=== PATIENT | female | born 1965 | race Caucasian/White ===

== ENCOUNTER → 2017-10-23 15:12 | Outpatient (CLI) | payer SELFPAY ==
--- NOTE | 2017-10-23 15:12 | DT_ITS ---
This patient was seen during an EMR downtime October 20, 2017 - October 27, 2017. This patient may have a combination of paper and electronic documentation or all paper documentation. All documentation is viewable within the e-chart portion of [facility] for each patient visit.
[2017-10-28 00:31] LABS: Hematocrit 43.8 % (37-47); Hemoglobin 14.2 g/dl (12.0-15.0); Mean Corp Hgb Conc 32.4 g/gl (32-36); Mean Corpuscular Hgb 29.6 pg (27.0-32.0); Mean Corpuscular Volume 91.3 fL (81-99); POSITIVE COUNT NO; POSITIVE DIFFERENTIAL NO; POSITIVE MORPHOLOGY NO; Platelet Count 204 K/mm3 (150-450); RBC Distribution Width CV 13.6 % (11.6-14.6); RBC Distribution Width SD 44.8 fl (35.1-43.9); White Blood Count 8.1 K/mm3 (4.4-11.0)
[2017-10-28 00:32] LABS: Absolute Lymphocyte Count 3.33 X10^3/ul (0.83-4.51); Absolute Neutrophil Count 3.8 X10^3/uL (2.0-7.7); Basophil# 0.04 X10^3/uL; Basophil% 0.5 % (0-1); Eosinophil# 0.16 X10^3/uL; Lymphocyte # 3.33 X10^3/ul (4.0); Lymphocyte % 41.2 % (19-41); Monocyte# 0.72 X10^3/uL; Monocyte% 8.9 % (0-10); Neutrophil # 3.82 X10^3/uL (2.7-7.7); Neutrophil % 47.3 % (47-70)
[2017-10-28 03:09] LABS: AST(SGOT) 54 U/L (15-37); Alanine Aminotransfer ALT/SGPT 92 U/L (13-56); Albumin, Serum 4.3 g/dL (3.2-5.0); Alkaline Phosphatase 129 U/L (45-117); Amylase 39 U/L (25-115); Bilirubin, Direct 0.12 mg/dL (0.00-0.30); Globulin 3.8 g/dL (2.2-4.2); Protein, Total 8.1 g/dL (6.4-8.2)
== END ==
PROVIDERS: Family Provider Family Medicine; PCP Family Medicine; Visit Provider Family Medicine
DX: R10.11 Right upper quadrant pain (principal)
CPT/HCPCS: 80076; 82150; 85025

== ENCOUNTER → 2017-10-28 09:10 | Outpatient (CLI) | payer SELFPAY ==
--- NOTE | 2017-10-28 09:14 | US_ITS ---
STUDY: ABDOMINAL ULTRASOUND - RIGHT UPPER QUADRANT REASON FOR VISIT: Female, 52 years old. Right upper quadrant pain. TECHNIQUE: Ultrasound evaluation of the right upper quadrant was performed with real-time and static bernard-scale imaging. TECHNICAL QUALITY: Adequate. COMPARISON: CT dated 02/07/2017. Ultrasound dated 05/30/2015. FINDINGS: Liver: The liver measures 14.3 cm. There is normal echogenicity of the liver. The bile ducts are within normal limits. There is hepatic color flow. The direction of portal flow is hepatopetal. There is no demonstrated mass lesion. Gallbladder: The patient is status post cholecystectomy. Common Bile Duct (C.B.D.): The common bile duct measures 3 mm. Pancreas: Normal size of the head, body and tail of the pancreas. There is normal echogenicity of the pancreas. There is no demonstrated pancreatic mass or cyst. Right Kidney: Normal size of the right kidney. The right kidney measures 10.8 cm. Normal renal cortex. There is no demonstrated renal mass or cyst. There is no right hydronephrosis. US/Abdomen Limited IMPRESSION: Status post cholecystectomy. Otherwise, unremarkable right upper quadrant ultrasound. Electronically Signed: Abad Thompson, at 23:01 EDT Tel , Service support ,
== END ==
PROVIDERS: Family Provider Family Medicine; PCP Family Medicine; Visit Provider Family Medicine
DX: R10.11 Right upper quadrant pain (principal); Z90.49 Acquired absence of other specified parts of digestive tract
CPT/HCPCS: 76705

== ENCOUNTER → 2018-02-21 11:37 | Outpatient (CLI) | payer SELFPAY ==
[2018-02-21 12:36] LABS: Absolute Lymphocyte Count 2.27 X10^3/ul (0.83-4.51); Absolute Neutrophil Count 2.7 X10^3/uL (2.0-7.7); Basophil# 0.03 X10^3/uL; Basophil% 0.5 % (0-1); Eosinophil# 0.12 X10^3/uL; Eosinophils% 2.2 % (0-5); Hematocrit 43.7 % (37-47); Hemoglobin 13.9 g/dl (12.0-15.0); Lymphocyte # 2.27 X10^3/ul (4.0); Lymphocyte % 41.2 % (19-41); Mean Corp Hgb Conc 31.8 g/gl (32-36); Mean Corpuscular Hgb 29.2 pg (27.0-32.0); Mean Corpuscular Volume 91.8 fL (81-99); Mean Platelet Vol. 13.2 fl (6.2-12.0); Monocyte# 0.39 X10^3/uL; Monocyte% 7.1 % (0-10); Platelet Count 163 K/mm3 (150-450); RBC Distribution Width CV 13.7 % (11.6-14.6); RBC Distribution Width SD 45.9 fl (35.1-43.9); Red Blood Count 4.76 M/mm3 (4.2-5.4); White Blood Count 5.5 K/mm3 (4.4-11.0)
[2018-02-21 12:39] LABS: POSITIVE COUNT NO; POSITIVE DIFFERENTIAL NO; POSITIVE MORPHOLOGY NO
[2018-02-21 12:53] LABS: T4 Total, Thyroxin 10.8 ug/dL (4.8-13.9); Thyroid Stim Hormone (TSH) 0.97 uIU/mL (0.358-3.74)
[2018-02-25 07:35] LABS: Acetylcholine Receptor Binding < 0.03 nmol/L (0.00-0.24)
== END ==
PROVIDERS: Family Provider Family Medicine; PCP Family Medicine; Referring Provider Ophthalmology; Visit Provider Ophthalmology
DX: H53.2 Diplopia (principal)
CPT/HCPCS: 36415; 84238; 84436; 84443; 85025

== ENCOUNTER → 2018-03-17 12:39 | Outpatient (CLI) | payer SELFPAY ==
--- NOTE | 2018-03-17 12:46 | MRI_ITS ---
STUDY: MRI BRAIN WITH AND WITHOUT CONTRAST REASON FOR EXAM: Female, 52 years old. Altered vision and headaches TECHNIQUE: Standardized multiplanar fat and water weighted pulse sequences were obtained. 6 ml of Gadavist contrast material was administered intravenously for the contrast portion of the examination. COMPARISON: MRI of the brain on November 24, 2015 FINDINGS: Normal size of the ventricles and extra-axial spaces for the patient's age. Normal white matter tracts of the supratentorial brain. Normal bilateral basal ganglia. Normal thalami. There is no extra-axial fluid accumulation. Normal flow voids within the major intracranial circulation suggesting patency by spin echo criteria. Normal venous enhancement. There is no enhancing intra-axial or extra-axial abnormality. Normal sella turcica, pituitary gland, infundibular stalk, optic chiasm and hypothalamus. Normal tectal plate and pineal gland. Normal midbrain, wero and medulla. Normal cerebellum. Normal basal cisterns. Normal bilateral temporal bones. Normal bilateral internal auditory canals. Small foci of signal dropout in the inferior frontal lobes on gradient echo weighted imaging sequence which may be due to old hemorrhagic contusions however correlation with clinical history is advised.. No demonstrated orbital abnormality, within the constraints of a routine brain study. Normal visualized paranasal sinuses. Normal calvarium and skull base. Normal visualized soft tissue structures. Normal visualized upper cervical spine. MRI/Brain W/WO Contrast IMPRESSION: Findings which may be consistent with small old hemorrhagic contusions in the inferior frontal lobes however correlation with clinical history is recommended Otherwise normal MRI of the brain with and without contrast. Electronically Signed: Clifford Dunn MD at 16:20 EDT , Service support ,
== END ==
PROVIDERS: Family Provider Family Medicine; PCP Family Medicine; Referring Provider Family Medicine; Visit Provider Family Medicine
DX: G43.909 Migraine, unspecified, not intractable, without status migrainosus (principal)
CPT/HCPCS: 70553; A9585

== ENCOUNTER 2018-06-09 11:51 | Emergency (ER) | payer SELFPAY ==
[2018-06-09 11:52] VITALS: BP 143/85; PULSE 106; RESP 19; TEMP 36.7; O2SAT 99; BMI 22.6
[2018-06-09 11:59] VITALS: BP 150/88; PULSE 107; RESP 17; O2SAT 97
--- NOTE | 2018-06-09 12:03 | EKG12_ITS ---
Test Reason : CP Blood Pressure : / mmHG Vent. Rate : 098 BPM Atrial Rate : 098 BPM P-R Int : 120 ms QRS Dur : 078 ms QT Int : 356 ms P-R-T Axes : 069 037 050 degrees QTc Int : 454 ms Normal sinus rhythm Normal ECG Confirmed by DEEPIKA NIÑO, LIONEL ([id number]), film editor JENI HARDEN ([id number]) on 06/12/2018 2:20:56 PM Referred By: PHOEBE Confirmed By:LIONEL POE MD
--- NOTE | 2018-06-09 12:03 | RAD_ITS ---
STUDY: X-RAY CHEST REASON FOR EXAM: Female, 52 years old. Chest pain. TECHNIQUE: PA and lateral views of the chest. COMPARISON: Comparison is made with prior study dated November 15, 2015. FINDINGS: EKG electrodes are seen. Surgical clips are seen in the left axillary region. Calcified myeloma and left lower lobe. No acute abnormality seen. There is no demonstrated pleural abnormality. Normal size heart. Normal mediastinum and tonja. Normal visualized pulmonary arteries. Normal visualized aortic arch and descending thoracic aorta. Normal visualized thoracic spine. Normal visualized ribs, clavicles, and shoulders. There is no demonstrated abnormality of the visualized soft tissue structures of the upper abdomen. RAD/Chest PA and Lateral IMPRESSION: Normal x-ray examination of the chest. Electronically Signed: Monico Felipe MD at 12:28 EST Tel [phone], Service support ,
--- NOTE | 2018-06-09 12:13 | EKG12_ITS ---
Test Reason : REPEAT CP Blood Pressure : / mmHG Vent. Rate : 092 BPM Atrial Rate : 092 BPM P-R Int : 124 ms QRS Dur : 076 ms QT Int : 350 ms P-R-T Axes : 070 043 053 degrees QTc Int : 432 ms Normal sinus rhythm Normal ECG Confirmed by DEEPIKA NIÑO, LIONEL ([id number]), restaurant expeditor JENI HARDEN ([id number]) on 06/12/2018 2:32:47 PM Referred By: ISIDRA Confirmed By:LIONEL POE MD
[2018-06-09] MEDS: Aspirin 81 MG TAB.CHEW 324 MG PO (12:41)
[2018-06-09 12:48] LABS: Absolute Lymphocyte Count 2.77 X10^3/ul (0.83-4.51); Absolute Neutrophil Count 3.3 X10^3/uL (2.0-7.7); Basophil# 0.02 X10^3/uL; Basophil% 0.3 % (0-1); Eosinophil# 0.13 X10^3/uL; Eosinophils% 1.9 % (0-5); Hemoglobin 13.4 g/dl (12.0-15.0); Lymphocyte # 2.77 X10^3/ul (4.0); Lymphocyte % 40.5 % (19-41); Mean Corp Hgb Conc 31.2 g/gl (32-36); Mean Corpuscular Hgb 29.3 pg (27.0-32.0); Mean Corpuscular Volume 94.1 fL (81-99); Mean Platelet Vol. 13.8 fl (6.2-12.0); Monocyte# 0.64 X10^3/uL; Monocyte% 9.4 % (0-10); Neutrophil # 3.25 X10^3/uL (2.7-7.7); Neutrophil % 47.5 % (47-70); Platelet Count 184 K/mm3 (150-450); RBC Distribution Width CV 13.4 % (11.6-14.6); RBC Distribution Width SD 45.7 fl (35.1-43.9); Red Blood Count 4.57 M/mm3 (4.2-5.4); White Blood Count 6.8 K/mm3 (4.4-11.0)
[2018-06-09 12:50] LABS: POSITIVE COUNT NO; POSITIVE DIFFERENTIAL NO; POSITIVE MORPHOLOGY NO
[2018-06-09 13:01] LABS: Anion Gap 8 (5-15); BUN 19 mg/dL (7-18); BUN/Creat Ratio 22.9 RATIO (10-20); Calcium,Total 9.2 mg/dL (8.5-10.1); Chloride 108 mmol/L (98-107); Creatinine, Serum 0.83 mg/dL (0.55-1.02); EST Glomerular Filtration Rate 77 mL/min (>60); Est Glom Filt Rate - Afr Amer 93 mL/min (>60); Estimated Creatinine Clearance 56.95 ml/min; Glucose 99 mg/dL (74-106); Potassium 3.8 mmol/L (3.5-5.1); Sodium Level 142 mmol/L (136-145)
[2018-06-09 13:15] VITALS: BP 116/61; PULSE 96; RESP 22; O2SAT 96
[2018-06-09 14:00] VITALS: BP 138/81; PULSE 68; RESP 20; O2SAT 99
--- NOTE | 2018-06-09 14:49 | ED.VISSUMM ---
- ER Visit Summary Date of Service: 06/09/18 Chief Complaint: Chest discomfort History of Present Illness: The patient is a 52 F presents with heaviness left breast while driving. She felt warm and removed her coat while driving. Duration of left breast heaviness 15 minutes. She had no associated symptoms. She denied radiation. She denies history of hiatal hernia, reflux or peptic ulcer disease. She denies history of PE or DVT. She denies leg pain, swelling discoloration. She denies history of coronary disease. She does have history ITP. Patient reported several episodes last week that shorter in duration. There was no associated symptoms or radiation. All symptoms occurred at rest. Physical Examination: Vital signs noted and remarkable for noted blood pressure 150/88. Heart rate is 107. She appears in no distress. Head is atraumatic normocephalic. Pupils are equal round reactive. Extraocular muscles are intact. TMs are pearly white with landmarks noted. Nares patent with no drainage. Posterior pharynx without erythema or exudate. Uvula is midline. There is no dysphonia or dysphasia. Trachea is midline. There is no stridor with auscultation of the neck. Heart is regular without murmur, gallop or rub. S1 and S2 are normal. Lungs are clear to auscultation with good movement of air bilaterally. Abdomen soft nontender bowel sounds are present normal. There is no palpable, pulsatile mass and there is no abdominal bruit. There is no asymmetry, swelling, discoloration, leg vein distention, palpable cords or tenderness along the distribution of the deep venous system. Neuro exam is nonfocal. Test Results: EKG revealed a sinus rhythm rate of 98 and is normal. ND duration, QRS duration, QT interval and axis are normal. There is no ST-T wave changes. Single view portable chest x-ray interpreted by me as negative CBC normal basic mental panel is remarkable for a chloride of 108 and BUN of 19, which is not significant. Troponin with several episodes in the past week is negative at 0.015. Heart score is 1 LOYD score is 0 Emergency Department Course and Treatment: Since she is a middle-aged woman this may represent atypical chest pain. EKG, chest x-ray and appropriate blood work was obtained. Treatment Plan: Discharge to home and follow-up with PCP Disposition: Discharged home in stable condition Impression: Nonexertional left-sided chest pain of unknown etiology This note was generated with [employer] dictation software. It may contain incorrect words, spelling, and punctuation that were not noted in review of the chart prior to signing ED Disposition - Plan for ED Patient: Chief Complaint: Chest Pain Instructions: ED Chest Pain Atypical Unkn Cause Referrals: Mauri Guerra MD [Primary Care Provider] - 3-5 Days
--- NOTE | 2018-06-09 14:53 | ED.DCSUM_ITS ---
- ER Visit Summary Date of Service: 06/09/18 Chief Complaint: Chest discomfort History of Present Illness: The patient is a 52 F presents with heaviness left breast while driving. She felt warm and removed her coat while driving. Duration of left breast heaviness 15 minutes. She had no associated symptoms. She denied radiation. She denies history of hiatal hernia, reflux or peptic ulcer disease. She denies history of PE or DVT. She denies leg pain, swelling discoloration. She denies history of coronary disease. She does have history ITP. Patient reported several episodes last week that shorter in duration. There was no associated symptoms or radiation. All symptoms occurred at rest. Physical Examination: Vital signs noted and remarkable for noted blood pressure 150/88. Heart rate is 107. She appears in no distress. Head is atraumatic normocephalic. Pupils are equal round reactive. Extraocular muscles are intact. TMs are pearly white with landmarks noted. Nares patent with no drainage. Posterior pharynx without erythema or exudate. Uvula is midline. There is no dysphonia or dysphasia. Trachea is midline. There is no stridor with auscultation of the neck. Heart is regular without murmur, gallop or rub. S1 and S2 are normal. Lungs are clear to auscultation with good movement of air bilaterally. Abdomen soft nontender bowel sounds are present normal. There is no palpable, pulsatile mass and there is no abdominal bruit. There is no asy mmetry, swelling, discoloration, leg vein distention, palpable cords or tenderness along the distribution of the deep venous system. Neuro exam is nonfocal. Test Results: EKG revealed a sinus rhythm rate of 98 and is normal. [place] duration, QRS duration, QT interval and axis are normal. There is no ST-T wave changes. Single view portable chest x-ray interpreted by me as negative CBC normal basic mental panel is remarkable for a chloride of 108 and BUN of 19, which is not significant. Troponin with several episodes in the past week is negative at 0.015. Heart score is 1 LOYD score is 0 Emergency Department Course and Treatment: Since she is a middle-aged woman this may represent atypical chest pain. EKG, chest x-ray and appropriate blood work was obtained. Treatment Plan: Discharge to home and follow-up with PCP Disposition: Discharged home in stable condition Impression: Nonexertional left-sided chest pain of unknown etiology This note was generated with [employer] dictation software. It may contain incorrect words, spelling, and punctuation that were not noted in review of the chart prior to signing ED Disposition - Plan for ED Patient: Chief Complaint: Chest Pain Instructions: ED Chest Pain Atypical Unkn Cause Referrals: Mauri Guerra MD [Primary Care Provider] - 3-5 Days
[2018-06-09 14:57] VITALS: BP 112/73; PULSE 103; RESP 18; O2SAT 98
== END 2018-06-09 15:06 | disposition home or self-care (01) ==
LOC: ED 12:51
PROVIDERS: Emergency Provider Emergency Medicine; Family Provider Family Medicine; PCP Family Medicine
DX: R07.9 Chest pain, unspecified (principal); Z82.49 Family history of ischemic heart disease and other diseases of the circulatory system; D69.3 Immune thrombocytopenic purpura
CPT/HCPCS: 71046; 80048; 84484; 85025; 93005; 99285; A4216

== ENCOUNTER → 2018-11-06 07:50 | Outpatient (CLI) | payer SELFPAY ==
--- NOTE | 2018-11-06 07:54 | US_ITS ---
STUDY: ABDOMINAL ULTRASOUND - RIGHT UPPER QUADRANT REASON FOR VISIT: Female, 53 years old. TECHNIQUE: Ultrasound evaluation of the right upper quadrant was performed with real-time and static bernard-scale imaging. TECHNICAL QUALITY: Adequate. COMPARISON: None. FINDINGS: Limited study of the right upper quadrant reveals the liver is not enlarged. It measures a 14.2 cm with normal biliary system, the common bile duct measures 4.2 mm. The portal vein is unremarkable. There is absence of the gallbladder. The pancreas is within normal limits. The right kidney measures 10.6 x 5.4 x 4.1 cm with renal cortex 1.2 cm, no hydronephrosis. US/Abdomen Limited IMPRESSION: Negative post cholecystectomy ultrasound of the right upper quadrant. Electronically Signed: Og Sharp, at 16:47 EDT Tel , Service support ,
== END ==
PROVIDERS: Family Provider Family Medicine; PCP Family Medicine; Referring Provider Family Medicine; Visit Provider Family Medicine
DX: R10.13 Epigastric pain (principal)
CPT/HCPCS: 76705

== ENCOUNTER → 2018-11-11 16:15 | Outpatient (CLI) | payer SELFPAY ==
[2018-11-11 17:43] LABS: ALB/GLOB Ratio 1.2 RATIO (0.9-2.4); AST(SGOT) 29 U/L (15-37); Alanine Aminotransfer ALT/SGPT 52 U/L (13-56); Albumin, Serum 4.1 g/dL (3.2-5.0); Alkaline Phosphatase 121 U/L (45-117); Anion Gap 10 (5-15); BUN 14 mg/dL (7-18); BUN/Creat Ratio 18.1 RATIO (10-20); Calcium,Total 9.1 mg/dL (8.5-10.1); Chloride 106 mmol/L (98-107); Creatinine, Serum 0.77 mg/dL (0.55-1.02); EST Glomerular Filtration Rate 83 mL/min (>60); Est Glom Filt Rate - Afr Amer 101 mL/min (>60); Globulin 3.4 g/dL (2.2-4.2); Glucose 103 mg/dL (74-106); Potassium 3.6 mmol/L (3.5-5.1); Protein, Total 7.5 g/dL (6.4-8.2); Sodium Level 145 mmol/L (136-145)
[2018-11-11 17:47] LABS: Hematocrit 40.7 % (37-47); Hemoglobin 13.1 g/dl (12.0-15.0); Mean Corp Hgb Conc 32.2 g/gl (32-36); Mean Corpuscular Hgb 29.2 pg (27.0-32.0); Mean Corpuscular Volume 90.6 fL (81-99); Mean Platelet Vol. 14.2 fl (6.2-12.0); Platelet Count 143 K/mm3 (150-450); RBC Distribution Width CV 13.5 % (11.6-14.6); RBC Distribution Width SD 44.6 fl (35.1-43.9); Red Blood Count 4.49 M/mm3 (4.2-5.4); White Blood Count 5.9 K/mm3 (4.4-11.0)
[2018-11-11 17:48] LABS: Scan Indicated on CBC? Y/N NO
[2018-11-11 17:49] LABS: Erythrocyte Sedimentation Rate 6 mm/hr (0-30)
[2018-11-13 16:07] LABS: Endomysial Antibody IgA Negative (Negative)
[2018-11-15 14:03] LABS: Immunoglobulin A 217 mg/dL (87-352); t-Transglutaminase IgA <2 U/mL (0-3)
== END ==
PROVIDERS: Family Provider Family Medicine; PCP Family Medicine; Referring Provider Family Medicine; Visit Provider Family Medicine
DX: R10.13 Epigastric pain (principal)
CPT/HCPCS: 36415; 80053; 82784; 83516; 85027; 85652; 86255

== ENCOUNTER → 2018-12-16 09:57 | Outpatient (CLI) | payer SELFPAY ==
--- NOTE | 2018-12-16 10:04 | BD_ITS ---
STUDY: DUAL ENERGY X-RAY ABSORPTIOMETRY / DXA REASON FOR EXAM: Female, 53 years old. The patient is postmenopausal. History of celiac disease. No loss of height. TECHNIQUE: Bone Mineral Density (BMD) measurements of lumbar spine and left hip were obtained. COMPARISON: Comparison is made with prior study dated October 13, 2013. FINDINGS: Lumbar Spine (L1-L4): g/cm2 (0.981) / T-score (-1.6) / Z-score (-0.9) Findings are suggestive of osteopenia with a moderate fracture risk. Left Femur Total: g/cm2 (0.896) / T-score (-0.9) / Z-score (-0.3) Left Femoral Neck: g/cm2 (0.825) / T-score (-1.5) / Z-score (-0.6) The T-Scores on the most recent prior examination were: Lumbar Spine (L1-L4): There has been worsening of bone density since the previous examination. Left Femur Total: which represents an improvement of 2.1%. BD/Dexa Bone Density Study IMPRESSION: The patient is considered osteopenic as outlined below according to World Fer Organization (WHO) criteria with a moderate fracture risk. There has been worsening of bone density since the previous examination. Reference Information: The T-score is the number of standard deviations above or below the standard which is normal for young adults at their peak bone mineral density. The World Health Organization (WHO) interprets the T-scores as follows: Above -1 Normal bone density Between -1 and -2.5 Osteopenia Equal to / or below -2.5 Osteoporosis As a practical clinical guideline, osteopenia may be graded as follows: Mild -1 through -1.5 Moderate -1.6 through -2.0 Severe -2.1 through -2.4 The Z-score is the number of standard deviations above or below age-matched controls. A Z-score of less than -1.5 would be considered abnormal. References: 1. NIH Osteoporosis and Related Bone Diseases http://www.osteo.org 2. International Society for Clinical Densitometry http://www.iscd.org 3. National Osteoporosis Foundation http://www.nof.org Electronically Signed: Monico Felipe, at 8:30 EDT , Service support ,
== END ==
PROVIDERS: Family Provider Family Medicine; PCP Family Medicine; Referring Provider Internal Medicine Gastroenterology; Visit Provider Internal Medicine Gastroenterology
DX: K90.0 Celiac disease (principal)
CPT/HCPCS: 77080

== ENCOUNTER → 2019-01-21 13:00 | Outpatient (CLI) | payer SELFPAY ==
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
== END ==
PROVIDERS: Family Provider Family Medicine; PCP Family Medicine; Referring Provider Psychiatry & Neurology Neurology; Visit Provider Psychiatry & Neurology Neurology
DX: M54.2 Cervicalgia (principal)
CPT/HCPCS: 72052

== ENCOUNTER → 2019-01-26 13:45 | Outpatient (CLI) | payer SELFPAY ==
[2019-01-26 13:45] VITALS: BMI 22.6
--- NOTE | 2019-01-26 13:50 | RAD_ITS ---
STUDY: X-RAY - LEFT SHOULDER REASON FOR EXAM: Fall 3 weeks ago. TECHNIQUE: 3 view(s) of the shoulder. COMPARISON: Radiographs 09/23/2016. FINDINGS: Normal glenohumeral articulation. Normal acromioclavicular joint. Normal acromion. Normal humeral head and visualized proximal humerus. There are surgical clips in the left axilla. Normal visualized pulmonary apex. RAD/Shoulder min 2 Views IMPRESSION: Surgical clips in the left axilla. Otherwise, unremarkable x-ray examination of the left shoulder. Electronically Signed: Fabián Cox MD at 14:15 EDT Tel , Service support ,
== END ==
PROVIDERS: Family Provider Family Medicine; PCP Family Medicine; Referring Provider Orthopaedic Surgery; Visit Provider Orthopaedic Surgery
DX: S49.92XA Unspecified injury of left shoulder and upper arm, initial encounter (principal)
CPT/HCPCS: 73030

== ENCOUNTER 2019-01-26 14:46 | Emergency (ER) | payer SELFPAY ==
[2019-01-26 13:45] VITALS: BMI 22.6
[2019-01-26 14:47] VITALS: BP 133/74; PULSE 83; RESP 16; TEMP 37.2; O2SAT 96; BMI 21.4
--- NOTE | 2019-01-26 15:10 | EKG12_ITS ---
Test Reason : GEN ILLNESS Blood Pressure : / mmHG Vent. Rate : 077 BPM Atrial Rate : 077 BPM P-R Int : 128 ms QRS Dur : 082 ms QT Int : 368 ms P-R-T Axes : 070 041 057 degrees QTc Int : 416 ms Normal sinus rhythm with sinus arrhythmia Normal ECG Confirmed by CARLYLE DAVALOS ([id number]), tape editor JENI HARDEN ([id number]) on 02/01/2019 2:12:39 PM Referred By: Loretta Clements Confirmed By:CARLYLE DAVALOS
--- NOTE | 2019-01-26 15:40 | RAD_ITS ---
STUDY: X-RAY CHEST REASON FOR EXAM: Female, 53 years old. Intermittent chest pain. TECHNIQUE: PA and lateral views of the chest. COMPARISON: Comparison is made with prior study June 09, 2018. FINDINGS: Surgical clips are seen in the left axillary region. Hyperinflation. Scattered calcified granulomas. There is no demonstrated pleural abnormality. Normal size heart. Normal mediastinum and tonja. Normal visualized pulmonary arteries. Normal visualized aortic arch and descending thoracic aorta. Normal visualized thoracic spine. Normal visualized ribs, clavicles, and shoulders. There is no demonstrated abnormality of the visualized soft tissue structures of the upper abdomen. RAD/Chest PA and Lateral IMPRESSION: Hyperinflation. No acute abnormality is seen. Electronically Signed: Monico Felipe, at 15:58 EDT , Service support ,
[2019-01-26 15:56] LABS: Anion Gap 6 (5-15); BUN 19 mg/dL (7-18); BUN/Creat Ratio 22.8 RATIO (10-20); Calcium,Total 9.2 mg/dL (8.5-10.1); Chloride 110 mmol/L (98-107); Creatinine, Serum 0.83 mg/dL (0.55-1.02); EST Glomerular Filtration Rate 76 mL/min (>60); Est Glom Filt Rate - Afr Amer 92 mL/min (>60); Glucose 88 mg/dL (74-106); Potassium 3.9 mmol/L (3.5-5.1); Sodium Level 144 mmol/L (136-145)
[2019-01-26 16:01] LABS: Hematocrit 42.6 % (37-47); Hemoglobin 13.5 g/dL (12.0-15.0); Mean Corp Hgb Conc 31.7 g/dL (32-36); Mean Corpuscular Hgb 30.1 pg (27.0-32.0); Mean Corpuscular Volume 94.9 fL (81-99); Mean Platelet Vol. 14.1 fl (6.2-12.0); Platelet Count 130 K/mm3 (150-450); RBC Distribution Width CV 13.6 % (11.6-14.6); RBC Distribution Width SD 47.3 fl (35.1-43.9); Red Blood Count 4.49 M/mm3 (4.2-5.4); White Blood Count 6.3 K/mm3 (4.4-11.0)
--- NOTE | 2019-01-26 16:21 | ED.VIS.GEN ---
History of Present Illness Chief Complaint: General Illness Informant: Patient Onset: - - January 08, which was a Friday Context: Sudden Onset Timing: Intermittent Quality: Pain Location: Anterior right and left chest Current Severity: - - Absent Maximum Severity: Moderate Worsened by: Breathing and movement Relieved by: Nothing Associated Symptoms: Patient reports dyspnea with exertion for approximately 3 months. Narrative: Patient presents after contacting Dr. Clements's office. Called in question if this was related to rotator cuff injury sustained secondary to fall January 07. Patient states she was helping her daughter get ready to move to college January 07. Pain first noted January 08. She states the pain resolved by January 09. She is had intermittent pain since. She states she has chronic chest pain. She was referred to Dr. Duncan Wang for GI work-up. She had a EGD and colonoscopy which were negative. He raised concern that the dyspnea on exertion may be related to cardiac etiology. Patient denies chest pain with exertion. She denies history of smoking. There is no history of PE or DVT. She denies leg pain, swelling discoloration. She denies URI symptoms. She denies ocular, visual or auditory symptoms. She denies black or maroon stool. There is no history of GI pathology and the EGD and colonoscopy were both reported to be normal. She presently has no symptoms. She does have history of allergies and mild asthma because of allergies. She has presently on no prednisone. Prior similar symptoms: Yes Recent Illness/Hospitalization: No - Past Medical History (1) Environmental and seasonal allergies Status: Acute (2) Asthma due to environmental allergies Status: Acute (3) Chronic ITP (idiopathic thrombocytopenia) Status: Chronic Past Medical History - Allergies and Home Meds Allergies/Adverse Reactions: Allergies No Known Allergies Allergy (Verified 01/26/19 14:47) Primary Care Physician: Mauri Guerra MD [Primary Care Provider] - Prior records reviewed: Yes Surgical History: noncontributory Lives: Spouse/ Significant Other Smoking Status: Never smoker Alcohol: None Drugs: None Review of Systems General: Denies: Chills, Fever, Sweats Eyes: Denies: Visual changes - bilaterally, Diplopia ENT: Denies: Rhinorrhea, Sore throat Cardiovascular: Reports: Chest pain. Denies: Palpitations, Heart racing, -, - Respiratory: Reports: Dyspnea on exertion. Denies: Dyspnea, Cough, Sputum, Orthopnea, Paroxysmal nocturnal dyspnea, -, - Gastrointestinal: Denies: Abdominal pain, Nausea, Vomiting, Diarrhea, Melena, Hematochezia Genitourinary: Denies: Dysuria, Hematuria, Frequency Musculoskeletal: Denies: Back pain, Extremity Pain Skin: Denies: Rash, Wounds Neurological: Denies: Headache, Weakness, Numbness Hematologic: Denies: Easy bruising, Easy bleeding Allergy: Denies: Uticaria Physical Exam Vital Signs/Narrative: Vital Signs Temp Pulse Resp BP Pulse Ox 01/26/19 14:47 99.0 F 83 16 133/74 H 96 Inital Vital Signs reviewed: Yes General: Well nourished, Well developed, No Acute Distress Head: Normocephalic, Atraumatic Eyes: Perrl, EOMI ENT: Moist mucous membranes, No rhinorrhea Neck: Supple, Nontender Cardiovascular: Regular rate, Regular rhythm, No murmurs Respiratory: No distress, CTA bilaterally, Chest nontender - To AP pressure to the sternum and back., Chest tenderness. Negative for: Wheezing, Decreased Air Movement, Retractions Abdomen: Soft, Nontender, Nondistended, Normal bowel sounds Back: Nontender, Normal Inspection Extremities: Nontender, No edema, - - There is no asymmetry, swelling, discoloration, leg vein distention, palpable cords or tenderness along the distribution of the deep venous system. Skin: Normal color, No rash Neurological: Alert, Oriented x3, Cranial nerves II-XII grossly intact, Normal Strength, Normal Sensation, Normal Gait Psychological: Normal affect, Normal Mood Diagnostic/Tx/Re-eval Chest X-Ray - ED: 2 View, Read by ED Physician, Unchanged, Normal, Lungs, Mediastinum, Bony Structures, No Acute Disease Impressions Chest X-Ray 01/26/19 15:40 IMPRESSION: Hyperinflation. No acute abnormality is seen. Electronically Signed: Monico Felipe, at 15:58 EDT , Service support , 01/26/19 15:40 Chest PA and Lateral [RAD] Stat Laboratory Results 01/26/19 01/26/19 15:30 15:30 WBC 6.3 RBC 4.49 Hgb 13.5 Hct 42.6 MCV 94.9 MCH 30.1 MCHC 31.7 L RDW Std Deviation 47.3 H RDW Coeff of Christina 13.6 Plt Count 130 L MPV 14.1 H Sodium 144 Potassium 3.9 Chloride 110 H Carbon Dioxide 28.0 Anion Gap 6 BUN 19 H Creatinine 0.83 Estim Creat Clear Calc 56.30 Est GFR (MDRD) Af Amer 92 Est GFR (MDRD) Non-Af 76 BUN/Creatinine Ratio 22.8 H Glucose 88 Calcium 9.2 Troponin I < 0.015 Chest x-ray reveals no acute pathology and no evidence of hiatal hernia. H&H is normal. Electrolyte panel, renal function are normal. Troponin is normal. Since patient is having dyspnea with exertion for the last 2 to 3 months will refer to Dr. Moreno who is on-call for cardiology. - Medical Decision Making Patient presents with intermittent chest pain after fall. Concerned this may represent muscle skeletal versus fractured rib or fractured sternum. Since patient presently has no symptoms doubt pulmonary embolus. Because she reports dyspnea on exertion in the past 2 to 3 months concerned this may represent cardiac etiology i.e. cardiomyopathy or coronary disease. We will obtain appropriate blood tests and EKG for cardiac work-up. If work-up is negative plan is discharge with outpatient follow-up with cardiology. Patient's work-up was unremarkable and will refer to cardiology. Chest x-ray reveals some chronic changes; however, patient has no history of smoking or exposure. ED Disposition - Plan for ED Patient: Disposition: Home or Assisted Living Diagnosis: Intermittent chest pain, Exertional dyspnea Instructions: CHEST PAIN, Uncertain Cause, ED Dyspnea Referrals: Muari Guerra MD [Primary Care Provider] - Alexey Quiroz MD [STAFF PHYSICIAN] - 3-5 Days Additional Instructions: Call Dr. Alexey Quiroz's office to be seen within the next 3 to 5 days to evaluate why you are having shortness of breath with exertion.
== END 2019-01-26 16:47 | disposition home or self-care (01) ==
PROVIDERS: Emergency Provider Emergency Medicine; Family Provider Family Medicine; PCP Family Medicine
DX: R07.89 Other chest pain (principal); R06.00 Dyspnea, unspecified; D69.3 Immune thrombocytopenic purpura; J45.909 Unspecified asthma, uncomplicated
CPT/HCPCS: 71046; 80048; 84484; 85027; 93005; 99283; A4216

== ENCOUNTER → 2019-02-03 09:35 | Outpatient (CLI) | payer SELFPAY ==
[2019-01-26 14:47] VITALS: BMI 21.4
--- NOTE | 2019-02-03 09:43 | MRI_ITS ---
STUDY: MRI LEFT SHOULDER REASON FOR EXAM: Shoulder and upper arm pain status post fall 3 weeks ago, limited range of motion. TECHNIQUE: Standardized fat and water weighted pulse sequences were obtained in all 3 orthogonal planes. COMPARISON: Radiographs 01/26/2019. FINDINGS: There is mild supraspinatus tendinosis (T2 coronal images 8-10) without discrete tendon tear. Normal infraspinatus tendon. There is mild subscapularis tendinosis (proton density axial image 10) without discrete tendon tear. Normal teres minor tendon. Normal supraspinatus muscle. Normal infraspinatus muscle. Normal subscapularis muscle. Normal teres minor muscle. There is a minimal volume of fluid in the glenohumeral joint. Normal humeral head and visualized proximal humerus. Normal biceps labral complex. Normal intracapsular long biceps tendon. Normal labrum. Normal capsulo- ligamentous complex. Normal acromioclavicular articulation. There is a Type I morphology (flat undersurface), with a neutral orientation. There is no subacromial-subdeltoid bursal fluid. Normal visualized coracohumeral and coracoacromial ligaments. Normal deltoid muscle. Normal trapezius muscle. MRI/Upper Ext Joint Only(Routine) IMPRESSION: Mild supraspinatus and subscapularis tendinosis without demonstrated rotator cuff tear. Electronically Signed: Fabián Cox MD at 11:22 EDT Tel , Service support ,
== END ==
PROVIDERS: Family Provider Family Medicine; PCP Family Medicine; Referring Provider Orthopaedic Surgery; Visit Provider Orthopaedic Surgery
DX: S46.002A Unspecified injury of muscle(s) and tendon(s) of the rotator cuff of left shoulder, initial encounter (principal)
CPT/HCPCS: 73221

== ENCOUNTER → 2019-03-16 08:32 | Outpatient (CLI) | payer SELFPAY ==
[2019-03-16 08:18] VITALS: BMI 21.9
--- NOTE | 2019-03-16 08:35 | RAD_ITS ---
STUDY: X-RAY - LUMBAR SPINE REASON FOR EXAM: Female, 53 years old. Low back and right hip pain. TECHNIQUE: 5 view(s) of the lumbar spine were obtained. COMPARISON: None FINDINGS: Normal lumbar lordosis. There is no substantial scoliosis. There is a normal alignment of the vertebrae. Normal vertebral bodies and endplates. Minimal intervertebral disc space narrowing at L5-S1 with no significant osteophyte formation. Mild diffuse facet sclerosis. The soft tissue structures are unremarkable. RAD/L/S Spine Min 4 Views IMPRESSION: Minimal lower lumbar spondylosis as described. Electronically Signed: Shalom Decker MD at 10:50 EDT , Service support ,
--- NOTE | 2019-03-16 09:11 | RAD_ITS ---
STUDY: X-RAY - PELVIS AND RIGHT HIP REASON FOR EXAM: Female, 53 years old. Atraumatic right hip pain. TECHNIQUE: 3 views of the pelvis and hip. COMPARISON: None. FINDINGS: There is a non-specific bowel gas pattern. Normal visualized soft tissue structures. Normal bilateral iliac wings, sacroiliac joints and visualized sacrum. Normal bilateral superior and inferior pubic rami. Normal pubic symphysis. Normal bilateral ischial tuberosities. Normal visualized femoral head. Normal acetabulum. Normal hip joint. RAD/HIP, UNI W/ Pelvis 2-3 Views IMPRESSION: Normal x-ray examination of the pelvis and hip. Electronically Signed: Shalom Decker MD at 10:56 EDT , Service support ,
== END ==
PROVIDERS: Family Provider Family Medicine; PCP Family Medicine; Referring Provider Orthopaedic Surgery; Visit Provider Orthopaedic Surgery
DX: M79.604 Pain in right leg (principal); M25.551 Pain in right hip
CPT/HCPCS: 72110; 73502

== ENCOUNTER → 2019-03-29 12:51 | Outpatient (CLI) | payer SELFPAY ==
[2019-02-03 12:07] VITALS: BMI 21.7
[2019-03-16 08:18] VITALS: BMI 21.9
--- NOTE | 2019-03-29 12:55 | STEWCON_ITS ---
Reason For Study: Chest Pain Stress Results Protocol: Nixon Protocol Maximum Predicted HR: 167 bpm Target HR: 142 bpm % Maximum Predicted HR: 101 % DurationHeart Rate Stage (mm:ss) (bpm) BP Comment Baseline 92 116/70No Chest Pain; 3 ML Diluted Definity Given Nixon Protocol Stage I 3:00 111 112/68No Chest Pain Nixon Protocol Stage II 3:00 137 130/58Mild Chest Ache Nixon Protocol Stage III 3:00 153 138/60Mild Chest Ache Nixon Protocol Stage IV 3:00 169 150/62Mild Chest Ache Recovery 91 110/66No Chest Pain Stress Duration: 12:00 mm:ss Maximum Stress HR: 169 bpm METS: 13 Baseline Echocardiogram Findings Stress Echo Wall motion Data Resting WM Intermediate WM Stress WM Interpretation Summary Stress echocardiogram with and without Definity enhancement. 53-year-old lady with a history of coronary artery disease in the family. Stress protocol: Resting EKG demonstrates normal sinus rhythm with a rate of 88 bpm normal intervals are noted resting blood pressures 180 18 over 70 mmHg. The patient exercised according to the regular Nixon protocol for a total duration of 12 minutes. Patient completed stage IV the Nixon protocol the maximum heart rate attained was 171 bpm which was 102% of maximum predicted heart rate the maximum workload was 13.4 metabolic equivalents. The patient maintained sinus rhythm throughout the recording at rest there were no ST or T wave changes noted suggest ischemia peak exercise upsloping ST changes and were noted with no meet the criteria for ischemia. Patient come complained of mild chest ache which persisted throughout the test. Stress echocardiogram. Resting and stress echocardiographic images were obtained with Definity enhancement. The resting echocardiogram was estimated to be 53%. At stress there was thickening of all hameed and reduction in left ventricular systolic function. The peak ejection fraction was estimated to be 65%. No obvious wall motion abnormalities were noted. Conclusion: Exercise stress echo with no EKG criteria for ischemia at a high workload. Resting and stress echocardiographic images with no wall motion of normality suggestive of ischemia. Chest discomfort of questionable significance. Ordering Physician: Alexey Quiroz Referring Physician: Mauri Guerra Performed By: Leo Gresham RCS
== END ==
PROVIDERS: Family Provider Family Medicine; PCP Family Medicine; Referring Provider Internal Medicine Cardiovascular Disease; Visit Provider Internal Medicine Cardiovascular Disease
DX: R07.9 Chest pain, unspecified (principal)
CPT/HCPCS: 93017; 93350; Q9957; A4216; C8928

== ENCOUNTER 2019-04-16 09:00 | Outpatient (RCR) | payer SELFPAY ==
[2019-02-25 12:44] VITALS: BMI 21.9
--- NOTE | 2019-03-03 15:16 | HP.PTEVAL_ITS ---
Patient's Visit Information ROBERTO CARLOS VERONICA is a 53 year old F referred to Physical Therapy by Loretta Clements DO with a diagnosis of L shoulder pain, RCT small. Date of Evaluation: 03/03/19 Physical Therapist: Ge Chin, DPT, OCS, CSCS - Visit Plan Frequency: 3x /Week Duration: 2-4 Weeks Plan: 3x/week for 2-4 for. US nonthermal to R supraspinatus. activitiy modification to R shoulder rest. manual therapy for distraction. strength RC and posture adn progress HEP - Subjective Findings: Dr. Hooper said she has partial tear in L Rot cuff. MRI showed this last month. She fell on January 09 and been giving her fits since then. Was mildly bothersome prior to that as she was helping take care of her dad and needed to trasnfer him. Originally lifted him this summer. Was good prior to that. Was treated with cortisone shot last week which did not help much. Pain is in L upper arm daily. 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 Pain is 8/10 after driving. Has general ache all the time 2/10. Reaching up in front is easier than to the side , uses R hand for many things. Drive through windows are tough. Has to put L arm in coat or shirt first. Sleep is OK unless she lies on L side. 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 He had a stroke last Novemeb. Transferring him is painful. - Pain L shoulder Pain Intensity (Out of 10): 2 Pain Intensity Range: 2, 8 - Objective L shoulder has painful arc and limited AROM to 150 vs 160 on R. Abduction is to 145 vs 160 on R. Tender to touch over supraspinatus on L. IR limited adn painful L at L5 vs R to L1. External rotation fulla nd painfree today. reflexes 2/3 bi and tri B. Sensation WNL to gross light touch. Strength is 4+ R shoulder and elbow and L shoulder is ext rotation 4-, IR 4, flexion 4, abd 4 and bi/tri 4+. Only pain with abd, flexion and slight with ext rotation. + HK L, - ext rotation lag test, + neer L, - Goals Goal 1:: Full aROM without pain L shoulder Goal Time Frame: 4-6 Weeks Goal 2:: Patient feel 90% improved adn withotu pain at rest Goal Time Frame: 4-6 Weeks Goal 3:: Patient trasnfer father and put on coat without pain L shoulder Goal Time Frame: 4-6 Weeks Goal 4:: Pt I in appropriate HEP to minimize future problems. Goal Time Frame: 4-6 Weeks - Rehabilitation Potential Physical Therapy Diagnosis: L shouldr pain Rehabilitation Potential: Fair - Anticipated Interventions Patient/Client Instruction: Educate patient on: Condition, Plan of Care For the Purpose of:: To decrease pain, To increase ROM, To improve performance and independence with ADL's, To improve ability of physical actions for home/community/work/leisure Therapeutic Exercise to Include: Strength training, Postural training, Flexibilty training, Passive ROM, Active ROM, Scapular Strength/Stabilization For the Purpose of:: To decrease pain, To increase ROM, To improve muscle performance and motor function, To increase tolerance to activity/condition/position, To improve ability of physical actions for home/community/work/leisure Manual Therapy Techniques to Include: Mobilization, Passive ROM For the Purpose of:: To decrease pain, To increase ROM Ultrasound (thermal/non thermal): Yes - nonthermal For the Purpose of:: To decrease pain, To decrease swelling/inflammation Thank you for the opportunity to evaluate your patient. For Medicare and Medicare HMO plans, please review the plan of care and approve it. It will need to be FAXED BACK to us at [phone] for Medicare purposes. For Medicare only, by signing this I certify the plan of care. Please let me know if there are questions or concerns regarding this plan of care. Physician Signature: Date:
--- NOTE | 2019-03-23 14:13 | HP.PTEVAL2 ---
Patient's Visit Information ROBERTO CARLOS VERONICA is a 53 year old F referred to Physical Therapy by Loretta Clements DO with a diagnosis of DDD, R hip pain.. Date of Evaluation: 03/23/19 Physical Therapist: Ge Chin, DPT, OCS, CSCS - Visit Plan Frequency: 1-2x /Week Duration: 4-6 Weeks Plan: weekly to start and maybe 2x/week for STM for progression of muscle pumping, hip stretching adn strengthening/core strengthening ex. Next session if doing well, hip strength adn core strength, may increase frequency for STM if needed. - Subjective Findings: R hip pain. Not sure what happened but started to bother her for no apparent reason. Tailbone hurt in hospital with mom getting up from chair last year. Got pelvic floor pain at the time(previously had collapsed bladder surgery) and [facility] and got pelvic floor therapy which she did in September. R lateral hip started hurting as tailbone and pelvic got better. Standing on R leg adn kicking out ex may have aggravated R hip. Has history of scope in R hip by Dr. Tinsley. Pain in R hip is variable and intermittent. Typically 3-4/10 but can get up to 8/10. Feels pain inside R hip lateral and anterior. Aches at rest. Pressure to that muscle seems to help bad pain but not achiness. Walking a long distance can make her worse. Activities are normal. Basic ADLs are normal. 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 - Pain R hip Intensity: 2 Pain Intensity Range: 1, 8 - Objective Objective: No antalgia and normal transfers. Tender to touch B gluts adn piriformis moderately. AROM L/S is full and painfree today, no tenderness to PA pressure. Hip AROM is WFL and symmetrical, IR R hip is slightly uncomfortable at end range IR adn limited maybe 5 degrees. strength knee 4+/5 without pain, hip ext adn abduction is 4-/5 no pain. flexion 4 no pain, adduction 4+ and no pain. - hip scour. - KYLEIGH, slight + R FADDIR. - slump and slouch R and - lumbar compartment test. - Goals Goal 1:: Pain in R hip abolished Goal Time Frame: 2-4 Weeks Goal 2:: Pt feel 75% improved in R hip and LB Goal Time Frame: 4-6 Weeks Goal 3:: I appropr HEP to minimize future problems. Goal Time Frame: 4-6 Weeks - Rehabilitation Potential Physical Therapy Diagnosis: R hip pain, soft tissue vs gentle degeneration. Rehabilitation Potential: Fair - Anticipated Interventions Patient/Client Instruction: Educate patient on: Condition, Plan of Care For the Purpose of:: To decrease pain, To increase ROM, To increase tolerance to activity/condition/position Therapeutic Exercise to Include: Strength training, Flexibilty training, Passive ROM, Active ROM For the Purpose of:: To decrease pain, To increase ROM, To increase tolerance to activity/condition/position, To improve ability of physical actions for home/community/work/leisure Manual Therapy Techniques to Include: Soft tissue mobilization For the Purpose of:: To decrease pain, To improve muscle performance and motor function Thank you for the opportunity to evaluate your patient. For Medicare and Medicare HMO plans, please review the plan of care and approve it. It will need to be FAXED BACK to us at [phone] for Medicare purposes. For Medicare only, by signing this I certify the plan of care. Please let me know if there are questions or concerns regarding this plan of care. Physician Signature: Date:
--- NOTE | 2019-04-01 10:21 | HP.PTREVAL ---
Loretta Clements, DO, It has been my pleasure to treat ROBERTO CARLOS VERONICA over the last 5 visits for L shoulder pain, RCT small. Please see the progress note below for an update on the physical therapy plan of care! Subjective: L shoulder is not too bad. ached last night becasue she had to roll her dad adn use her UE alot yesterday. Doing OTB ex 3x10. 5 xweek. Objective/Function: Full AROM L shoulder, slight pain only at end range of elevation. Much better. strength Plan Plan: f/u 3 weeks for elevation strenght Goals Goal 1:: Full aROM without pain L shoulder Goal Time Frame: 4-6 Weeks Goal Progress: Progressing Goal 2:: Patient feel 90% improved adn withotu pain at rest Goal Time Frame: 4-6 Weeks Goal Progress: Progressing Goal 3:: Patient trasnfer father and put on coat without pain L shoulder Goal Time Frame: 4-6 Weeks Goal Progress: Progressing Goal 4:: Pt I in appropriate HEP to minimize future problems. Goal Time Frame: 4-6 Weeks Goal Progress: Progressing Anticipated Interventions Patient/Client Instruction: Educate patient on: Condition, Plan of Care For the Purpose of:: To decrease pain, To increase ROM, To improve performance and independence with ADL's, To improve ability of physical actions for home/community/work/leisure Therapeutic Exercise to Include: Strength training, Postural training, Flexibilty training, Passive ROM, Active ROM, Scapular Strength/Stabilization For the Purpose of:: To decrease pain, To increase ROM, To improve muscle performance and motor function, To increase tolerance to activity/condition/position, To improve ability of physical actions for home/community/work/leisure Manual Therapy Techniques to Include: Mobilization, Passive ROM For the Purpose of:: To decrease pain, To increase ROM Ultrasound (thermal/non thermal): Yes - nonthermal For the Purpose of:: To decrease pain, To decrease swelling/inflammation Please do not hesitate to contact me at [phone] by phone or if you have questions or concerns regarding this new plan of care! Sincerely, Ge Chin, DPT, OCS, CSCS
--- NOTE | 2019-07-23 13:23 | HP.PTDCNRP_ITS ---
HP - Discharge Summary (1) - Patient Information ROBERTO CARLOS VERONICA was seen in my office for initial evaluation on 03/03/19. The following Plan of Care was established for this patient: Initial Frequency: 3x /Week Initial Duration: 2-4 Weeks - Anticipated Interventions Patient/Client Instruction: Educate patient on: Condition, Plan of Care For the Purpose of:: To decrease pain, To increase ROM, To improve performance and independence with ADL's, To improve ability of physical actions for home/community/work/leisure Therapeutic Exercise to Include: Strength training, Postural training, Fl exibilty training, Passive ROM, Active ROM, Scapular Strength/Stabilization For the Purpose of:: To decrease pain, To increase ROM, To improve muscle performance and motor function, To increase tolerance to activity/condition/position, To improve ability of physical actions for home/community/work/leisure Manual Therapy Techniques to Include: Mobilization, Passive ROM For the Purpose of:: To decrease pain, To increase ROM Ultrasound (thermal/non thermal): Yes - nonthermal For the Purpose of:: To decrease pain, To decrease swelling/inflammation This patient was last seen in our office 04/01/19. Pertinent comments regarding their Physical therapy will appear below: Pt seen 5 visits of POC for L shoulder but cancelled the last one without rescheduling. At this point, it has been over two months and I will discontinue due to nonattendance. At this point I will be discontinuing this patient from physical therapy. I would be happy to see this patient again in the future if found appropriate by the physician. Thank you! Ge Chin, DPT, OCS, CSCS
--- NOTE | 2019-07-23 13:24 | HP.PT.NRP(2) ---
HP - Discharge Summary (2) - Patient Information ROBERTO CARLOS VERONICA was seen in my office for initial evaluation on 03/23/19. The following Plan of Care was established for this patient: Initial Frequency: 1-2x /Week Initial Duration: 4-6 Weeks Plan from Re-Evaluation: recheck, monitor tolerance to ex. - Anticipated Interventions Patient/Client Instruction: Educate patient on: Condition, Plan of Care For the Purpose of:: To decrease pain, To increase ROM, To increase tolerance to activity/condition/position Therapeutic Exercise to Include: Strength training, Flexibilty training, Passive ROM, Active ROM For the Purpose of:: To decrease pain, To increase ROM, To increase tolerance to activity/condition/position, To improve ability of physical actions for home/community/work/leisure Manual Therapy Techniques to Include: Soft tissue mobilization For the Purpose of:: To decrease pain, To improve muscle performance and motor function This patient was last seen in our office . Pertinent comments regarding their Physical therapy will appear below: Pt seen 4 visits for HEP for hip pain. She cancelled her last scheduled visit without rescheduling. At this point, it has been over two months and I will discontinue due to nonattendance. At this point I will be discontinuing this patient from physical therapy. I would be happy to see this patient again in the future if found appropriate by the physician. Thank you! Ge Chin, DPT, OCS, CSCS
== END 2019-04-16 19:00 | disposition home or self-care (01) ==
LOC: PT 09:00
PROVIDERS: Family Provider Family Medicine; PCP Family Medicine; Referring Provider Orthopaedic Surgery; Visit Provider Orthopaedic Surgery
DX: M75.112 Incomplete rotator cuff tear or rupture of left shoulder, not specified as traumatic (principal)
CPT/HCPCS: 97035; 97110; 97140; 97162; 97530

== ENCOUNTER → 2019-07-14 12:28 | Outpatient (CLI) | payer SELFPAY ==
[2019-07-14 11:53] VITALS: BMI 22.6
[2019-07-14 13:36] LABS: Absolute Lymphocyte Count 2.02 X10^3/uL (0.83-4.51); Absolute Neutrophil Count 3.6 X10^3/uL (2.0-7.7); Basophil# 0.02 X10^3/uL; Basophil% 0.3 % (0-1); Eosinophils% 1.6 % (0-5); Hemoglobin 13.9 g/dL (12.0-15.0); Lymphocyte # 2.02 X10^3/ul (4.0); Lymphocyte % 31.8 % (19-41); Mean Corp Hgb Conc 31.6 g/dL (32-36); Mean Corpuscular Hgb 29.8 pg (27.0-32.0); Mean Corpuscular Volume 94.2 fL (81-99); Monocyte# 0.58 X10^3/uL; Monocyte% 9.1 % (0-10); NRBC Flagged by Analyzer 0 % (0-5); Neutrophil # 3.62 X10^3/uL (2.7-7.7); Neutrophil % 56.9 % (47-70); Platelet Count 161 K/mm3 (150-450); RBC Distribution Width CV 13.2 % (11.6-14.6); RBC Distribution Width SD 45.1 fl (35.1-43.9); Red Blood Count 4.67 M/mm3 (4.2-5.4); White Blood Count 6.4 K/mm3 (4.4-11.0)
[2019-07-14 13:59] LABS: ALB/GLOB Ratio 1.1 RATIO (0.9-2.4); AST(SGOT) 48 U/L (15-37); Alanine Aminotransfer ALT/SGPT 82 U/L (13-56); Albumin, Serum 4.1 g/dL (3.2-5.0); Alkaline Phosphatase 117 U/L (45-117); Anion Gap 5 (5-15); BUN 16 mg/dL (7-18); BUN/Creat Ratio 21.8 RATIO (10-20); Chloride 109 mmol/L (98-107); Creatinine, Serum 0.74 mg/dL (0.55-1.02); EST Glomerular Filtration Rate 88 mL/min (>60); Est Glom Filt Rate - Afr Amer 106 mL/min (>60); Globulin 3.9 g/dL (2.2-4.2); Glucose 91 mg/dL (74-106); LDH 243 U/L (84-246); Potassium 3.8 mmol/L (3.5-5.1); Sodium Level 142 mmol/L (136-145)
[2019-07-14 20:31] LABS: Xtra Tube EP Lab EXTRA TUBE
== END ==
PROVIDERS: Referring Provider Internal Medicine Medical Oncology; Visit Provider Internal Medicine Medical Oncology
DX: D69.3 Immune thrombocytopenic purpura (principal)
CPT/HCPCS: 36415; 80053; 83615; 85025

== ENCOUNTER → 2019-07-14 16:53 | Outpatient (CLI) | payer SELFPAY ==
[2019-07-14 11:53] VITALS: BMI 22.6
[2019-07-14 17:33] LABS: Absolute Lymphocyte Count 2.28 X10^3/uL (0.83-4.51); Absolute Neutrophil Count 3.4 X10^3/uL (2.0-7.7); Basophil# 0.03 X10^3/uL; Basophil% 0.5 % (0-1); Eosinophil# 0.11 X10^3/uL; Eosinophils% 1.7 % (0-5); Hematocrit 41.2 % (37-47); Hemoglobin 13.3 g/dL (12.0-15.0); Lymphocyte # 2.28 X10^3/ul (4.0); Mean Corp Hgb Conc 32.3 g/dL (32-36); Mean Corpuscular Hgb 30.2 pg (27.0-32.0); Mean Corpuscular Volume 93.4 fL (81-99); Mean Platelet Vol. 14.1 fl (6.2-12.0); Monocyte# 0.64 X10^3/uL; Monocyte% 9.8 % (0-10); NRBC Flagged by Analyzer 0 % (0-5); Neutrophil # 3.43 X10^3/uL (2.7-7.7); Neutrophil % 52.7 % (47-70); Platelet Count 164 K/mm3 (150-450); RBC Distribution Width CV 13.1 % (11.6-14.6); RBC Distribution Width SD 44.7 fl (35.1-43.9); Red Blood Count 4.41 M/mm3 (4.2-5.4); White Blood Count 6.5 K/mm3 (4.4-11.0)
[2019-07-14 17:55] LABS: Erythrocyte Sedimentation Rate 12 mm/hr (0-30)
[2019-07-14 18:20] LABS: ALB/GLOB Ratio 1.1 RATIO (0.9-2.4); AST(SGOT) 43 U/L (15-37); Alanine Aminotransfer ALT/SGPT 81 U/L (13-56); Albumin, Serum 4.1 g/dL (3.2-5.0); Alkaline Phosphatase 111 U/L (45-117); Anion Gap 4 (5-15); BUN 15 mg/dL (7-18); BUN/Creat Ratio 20.1 RATIO (10-20); Calcium,Total 8.7 mg/dL (8.5-10.1); Chloride 108 mmol/L (98-107); Creatinine, Serum 0.75 mg/dL (0.55-1.02); EST Glomerular Filtration Rate 86 mL/min (>60); Est Glom Filt Rate - Afr Amer 104 mL/min (>60); Globulin 3.7 g/dL (2.2-4.2); Glucose 88 mg/dL (74-106); Potassium 3.5 mmol/L (3.5-5.1); Protein, Total 7.8 g/dL (6.4-8.2); Rheumatoid Factor < 10.0 IU/mL (<15); Sodium Level 140 mmol/L (136-145); Thyroid Stim Hormone (TSH) 1.47 uIU/mL (0.358-3.74)
[2019-07-14 18:21] LABS: CRP < 2.90 mg/L (0.0-3.0)
[2019-07-16 16:08] LABS: ANTINUCLEAR ANTIBODIES DIRECT Negative (Negative)
== END ==
LOC: MFPLAB 16:54
PROVIDERS: PCP Family Medicine; Referring Provider Family Medicine; Visit Provider Family Medicine
DX: R53.81 Other malaise (principal)
CPT/HCPCS: 36415; 80053; 84443; 85025; 85652; 86038; 86140; 86431

== ENCOUNTER → 2020-07-19 17:44 | Outpatient (CLI) | payer SELFPAY ==
[2020-02-24 15:30] VITALS: BMI 22.2
[2020-07-19 18:00] LABS: Absolute Lymphocyte Count 3.34 X10^3/uL (0.83-4.51); Basophil# 0.03 X10^3/uL; Basophil% 0.4 % (0-1); Eosinophil# 0.19 X10^3/uL; Eosinophils% 2.6 % (0-5); Hematocrit 44.9 % (37-47); Hemoglobin 14.3 g/dL (12.0-15.0); Lymphocyte # 3.34 X10^3/ul (4.0); Lymphocyte % 45.6 % (19-41); Mean Corp Hgb Conc 31.8 g/dL (32-36); Mean Corpuscular Hgb 29.7 pg (27.0-32.0); Mean Corpuscular Volume 93.2 fL (81-99); Mean Platelet Vol. 13.4 fl (6.2-12.0); Monocyte# 0.78 X10^3/uL; Monocyte% 10.7 % (0-10); NRBC Flagged by Analyzer 0 % (0-5); Neutrophil # 2.96 X10^3/uL (2.7-7.7); Neutrophil % 40.4 % (47-70); Platelet Count 169 K/mm3 (150-450); RBC Distribution Width CV 13.6 % (11.6-14.6); RBC Distribution Width SD 46.2 fl (35.1-43.9); Red Blood Count 4.82 M/mm3 (4.2-5.4); White Blood Count 7.3 K/mm3 (4.4-11.0)
[2020-07-19 18:22] LABS: Erythrocyte Sedimentation Rate 13 mm/hr (0-30)
[2020-07-19 18:50] LABS: ALB/GLOB Ratio 1.1 RATIO (0.9-2.4); AST(SGOT) 62 U/L (15-37); Alanine Aminotransfer ALT/SGPT 117 U/L (13-56); Albumin, Serum 4.2 g/dL (3.2-5.0); Alkaline Phosphatase 136 U/L (45-117); Anion Gap 8 (5-15); BUN 16 mg/dL (7-18); BUN/Creat Ratio 21.3 RATIO (10-20); CRP < 2.90 mg/L (0.0-3.0); Calcium,Total 9.7 mg/dL (8.5-10.1); Chloride 105 mmol/L (98-107); Creatinine, Serum 0.75 mg/dL (0.55-1.02); EST Glomerular Filtration Rate 85 mL/min (>60); Est Glom Filt Rate - Afr Amer 103 mL/min (>60); GGTP 34 U/L (5-55); Globulin 3.9 g/dL (2.2-4.2); Glucose 92 mg/dL (74-106); Potassium 3.8 mmol/L (3.5-5.1); Protein, Total 8.1 g/dL (6.4-8.2); Sodium Level 140 mmol/L (136-145)
== END ==
LOC: LAB 17:46
PROVIDERS: PCP Family Medicine; Referring Provider Family Medicine; Visit Provider Family Medicine
DX: R10.31 Right lower quadrant pain (principal); R10.11 Right upper quadrant pain
CPT/HCPCS: 36415; 80053; 82977; 85025; 85652; 86140

== ENCOUNTER → 2020-07-24 08:54 | Outpatient (CLI) | payer SELFPAY ==
[2020-02-24 15:30] VITALS: BMI 22.2
--- NOTE | 2020-07-24 09:05 | US_ITS ---
STUDY: ABDOMINAL ULTRASOUND REASON FOR EXAM: Female, 54 years old. RUQ/RLQ abdominal pain TECHNIQUE: Transabdominal ultrasound was performed with real-time and static bernard scale imaging. TECHNICAL QUALITY: Adequate. COMPARISON: None. FINDINGS: Liver: The liver measures 15.1 cm. There is normal echogenicity of the liver. The bile ducts are within normal limits. There is hepatic color flow. The direction of portal flow is hepatopetal. There is no demonstrated mass lesion. Portal vein measurement: Gallbladder: The patient is status post cholecystectomy.. Common Bile Duct (C.B.D.): The common bile duct measures 3 mm. Pancreas: Normal size of the head, body and tail of the pancreas. There is normal echogenicity of the pancreas. There is no demonstrated pancreatic mass or cyst. Spleen: Normal size of the spleen. The spleen measures 8.3 cm. Right Kidney: Normal size of the right kidney. The right kidney measures 9.6 cm. Normal renal cortex. The right cortex measures 1.1 cm. There is no demonstrated renal mass or cyst. There is no right hydronephrosis. Left Kidney: Normal size of the left kidney. The left kidney measures 9.5 cm. Normal renal cortex. The left cortex measures 1.9 cm. There is no demonstrated renal mass or cyst. There is no left hydronephrosis. Aorta: No abdominal aortic aneurysm. I.V.C.: The IVC is patent. There is no ascites. US/Abdomen Complete IMPRESSION: Normal abdominal ultrasound examination. Electronically Signed: Pilo Vergara MD at 9:25 EST Tel , Service support ,
== END ==
PROVIDERS: PCP Family Medicine; Referring Provider Family Medicine; Visit Provider Family Medicine
DX: R10.31 Right lower quadrant pain (principal)
CPT/HCPCS: 76700

== ENCOUNTER → 2020-08-17 10:57 | Outpatient (CLI) | payer SELFPAY ==
--- NOTE | 2020-08-17 11:05 | BD_ITS ---
STUDY: DUAL ENERGY X-RAY ABSORPTIOMETRY / DXA REASON FOR EXAM: Female, 54 years old. K59.00 TECHNIQUE: Bone Mineral Density (BMD) measurements of lumbar spine and bilateral hips were obtained. COMPARISON: Comparison is made with prior study dated 12/16/2018. FINDINGS: Lumbar Spine (L1-L4): g/cm2 (0.996) / T-score (-1.5) / Z-score (-0.7) Findings are suggestive of osteopenia with a low fracture risk. Left Femur Total: g/cm2 (0.847) / T-score (-1.3) / Z-score (-0.6) Left Femoral Neck: g/cm2 (0.808) / T-score (-1.7) / Z-score (-0.6) Right Femur Total: g/cm2 (0.838) / T-score (-1.3) / Z-score (-0.7) Right Femoral Neck: g/cm2 (0.848) / T-score (-1.4) / Z-score (-0.4) The T-Scores on the most recent prior examination were: Lumbar Spine (L1-L4): There has been improvement of bone density since the previous examination. Left Femur Total: which represents a worsening of 5.5%. Right Femur Total: which represents a worsening of 3.9%. BD/Dexa Bone Density Study IMPRESSION: The patient is considered normal as outlined below according to World Fer Organization (WHO) criteria with a moderate fracture risk. There has been worsening of bone density since the previous examination. Reference Information: The T-score is the number of standard deviations above or below the standard which is normal for young adults at their peak bone mineral density. The World Health Organization (WHO) interprets the T-scores as follows: Above -1 Normal bone density Between -1 and -2.5 Osteopenia Equal to / or below -2.5 Osteoporosis As a practical clinical guideline, osteopenia may be graded as follows: Mild -1 through -1.5 Moderate -1.6 through -2.0 Severe -2.1 through -2.4 The Z-score is the number of standard deviations above or below age-matched controls. A Z-score of less than -1.5 would be considered abnormal. References: 1. NIH Osteoporosis and Related Bone Diseases www osteo.org 2. International Society for Clinical Densitometry www iscd.org 3. National Osteoporosis Foundation www nof.org Electronically Signed: Monico Felipe MD at 15:48 EDT , Service support ,
== END ==
PROVIDERS: PCP Family Medicine; Referring Provider Internal Medicine Gastroenterology; Visit Provider Internal Medicine Gastroenterology
DX: K90.0 Celiac disease (principal)
CPT/HCPCS: 77080

== ENCOUNTER → 2020-12-07 12:21 | Outpatient (CLI) | payer SELFPAY ==
[2020-09-14 09:19] VITALS: BMI 22.2
== END ==
LOC: LABSPEC 12:22
PROVIDERS: PCP Family Medicine; Referring Provider Family Medicine; Visit Provider Family Medicine
DX: R30.0 Dysuria (principal)
CPT/HCPCS: 87086

== ENCOUNTER 2023-02-12 14:17 | Emergency (ER) | payer SELFPAY ==
[2023-02-12 14:18] VITALS: BP 143/89; PULSE 85; RESP 18; TEMP 36; O2SAT 100; BMI 23.6
[2023-02-12 14:31] VITALS: BP 156/90; PULSE 80; RESP 15; O2SAT 99
[2023-02-12 14:51] VITALS: O2SAT 95
--- NOTE | 2023-02-12 14:55 | RAD_ITS ---
STUDY: X-RAY CHEST REASON FOR EXAM: Female, 57 years old. 4 day history of chest pain. TECHNIQUE: Single AP portable view of the chest. COMPARISON: Comparison is made with prior study dated January 26, 2019. FINDINGS: EKG electrodes are seen. The lungs are clear and expanded. Scattered calcified granulomas. There is no demonstrated pleural abnormality. Normal size heart. Normal mediastinum and tonja. Normal visualized pulmonary arteries. Normal visualized aortic arch and descending thoracic aorta. Normal visualized thoracic spine. Normal visualized ribs, clavicles, and shoulders. There is no demonstrated abnormality of the visualized soft tissue structures of the upper abdomen. RAD/Chest 1 View (Portable) IMPRESSION: Normal x-ray examination of the chest. Electronically Signed: Monico Felipe MD at 15:17 EDT ,
[2023-02-12 14:57] LABS: Absolute Neutrophil Count 3.6 X10^3/uL (2.0-7.7); Basophil# 0.06 X10^3/uL; Basophil% 0.7 % (0-1); Eosinophil# 0.23 X10^3/uL; Eosinophils% 2.8 % (0-5); Hematocrit 46.2 % (37-47); Hemoglobin 14.6 g/dL (12.0-15.0); Lymphocyte % 42.7 % (19-41); Mean Corp Hgb Conc 31.6 g/dL (32-36); Mean Corpuscular Hgb 29.1 pg (27.0-32.0); Mean Corpuscular Volume 92.2 fL (81-99); Mean Platelet Vol. 13.4 fl (6.2-12.0); Monocyte# 0.77 X10^3/uL; Monocyte% 9.4 % (0-10); NRBC Flagged by Analyzer 0 % (0-5); Neutrophil # 3.61 X10^3/uL (2.7-7.7); Platelet Count 192 K/mm3 (150-450); RBC Distribution Width CV 13.7 % (11.6-14.6); RBC Distribution Width SD 46.4 fl (35.1-43.9); Red Blood Count 5.01 M/mm3 (4.2-5.4); White Blood Count 8.2 K/mm3 (4.4-11.0)
--- NOTE | 2023-02-12 15:11 | ED.VIS.CHEST ---
HPI History of Present Illness Chief Complaint: Chest Pain Informant: patient and spouse/S.O. Narrative Narrative: With anterior chest pain. Patient states that she was just driving on Friday. She had only been in the car for short time. She had some anterior mid to lower sternal chest discomfort. It is just sort of a soreness. A few times it has radiated to her back but its not there now and that is been a minor aspect. She is not and never has been short of breath. She has had a low-grade nausea at this time. But no vomiting. No abdominal pain. No lightheaded. No diaphoresis. Nothing really makes it better or worse. It does not change with exertion activity deep breaths or eating or drinking. She states she has had this before. Its happened a handful at times but is not a recurrent issue. But it normally goes away within the day and this 1 just is not going away. She does not feel systemically ill. No fevers chills sweats myalgias or coughing. Patient has a history of ITP he she has a history of asthma but does not feel at all like her asthma is acting up. She has never had heart disease. She had a stress test in the past as reported below. No first-degree relatives with heart disease. No blood pressure or diabetes or cholesterol. Her mother had heart disease but not until her 80s. She did have some aunts and uncles with early heart disease though. Patient has had no recent travel surgery immobilization personal family history of DVT or PE or leg pain or swelling. PFSH PFSH Medical History Actinic keratosis Asthma Celiac disease Chronic ITP (idiopathic thrombocytopenia) Environmental and seasonal allergies Female bladder prolapse hsitory of colonoscopy Lymphadenopathy Tendonitis of both shoulders Home Medications loratadine 10 mg tablet 10 mg PO DAILY 03/03/15 [History Last Taken Unknown] Advair 250-50 Diskus 1 puff inhalation DAILY PRN Allergies 02/24/20 [History Last Taken Unknown] Albuterol IH (ProAir) inhaler inhalation Q4H PRN Allergies 02/24/20 [History Last Taken Unknown] Allergy/AdvReac Type Severity Reaction Status Date / Time No Known Allergies Allergy Verified 06/06/21 11:22 Family History Mother Thyroid disorder Lupus Arthritis Hyperlipidemia Skin cancer Father Heart disease Hyperlipidemia Hypertension Skin cancer Surgical History history of arthroscopy hip History of bladder repair surgery History of hysterectomy Hx of cholecystectomy Social History Smoking Status: Never smoker ROS ROS ED ROS Narrative A complete review of systems was performed and is negative except as documented in the history of present illness. Some specific details below. Constitutional: No recent fevers or chills. Days. No generalized feeling of illness at all. EYE: No discharge, visual complaints, or pain. ENT: No difficulty swallowing. No swelling. No pain. No reflux symptoms. The taste CV: See history of present illness. Respiratory: Not at all short of breath. GI: No abdominal pain. She does have some mild nausea but no vomiting diarrhea. No blood in stool. : No frequency dysuria or hematuria. Musculoskeletal: No recent trauma. No pains. No swelling. Strain DVT. Skin: No rash. Nondiaphoretic. Neuro: No weakness or numbness. Endocrine: No polyuria or polydipsia. EXAM Physical Exam Narrative Exam Narrative: CONSTITUTIONAL: Patient is nontoxic in appearance. The patient looks comfortable. Work of breathing looks normal. HEENT: No notable trauma. Mucous membranes moist. No sinus tenderness. No indication of pain with swallowing. EYES: No pallor. NECK:No JVD. No stridor. CARDIOVASCULAR: Regular rate. Regular rhythm. No notable murmur. No JVD. Pulses are normal strong and equal x4. RESPIRATORY: No respiratory distress. Breathing is unlabored. No wheezes. No rhonchi. No rales. No pain with a deep breath. No chest wall tenderness. Patient is her normal at 98% on room air on the monitor showing no hypoxia. GASTROINTESTINAL: Not distended. Bowel sounds are normal. No tenderness. No guarding. No rebound. No palpable mass. No bruit is heard. GENITOURINARY: No tenderness over the bladder. No CVA tenderness. MUSCULOSKELETAL: Atraumatic. No peripheral edema. No cord. No tenderness along the deep venous system. No asymmetry. No distended veins. NEUROLOGICAL: Patient is alert and appropriate. No focal deficit noted. SKIN: No noted rashes. No diaphoresis. PSYCHIATRIC: Patient is calm. Mood is appropriate. Const Vital Signs: 02/12/23 14:18 02/12/23 14:31 02/12/23 14:31 Temperature 96.8 F L Temperature Source Temporal Pulse Rate 85 80 Respiratory Rate 18 15 Respiratory Effort Normal Blood Pressure 143/89 H 156/90 H Blood Pressure Mean 107 112 Pulse Ox 100 99 Oxygen Delivery Method Room Air Room Air 02/12/23 14:51 Temperature Temperature Source Pulse Rate Respiratory Rate Respiratory Effort Blood Pressure Blood Pressure Mean Pulse Ox 95 Oxygen Delivery Method Room Air Heart Score History: Slightly/Non-Suspicious ECG: Normal Age: >45 - <65 years Risk Factors: No Risk Factors Troponin: </= Normal Limit Score: 1 MDM MDM MDM Narrative Medical decision making narrative: Pen interpretation the patient's single view chest x-ray shows no acute process and final reading is similar. CBC is normal. Patient's electrolytes are normal including her glucose. Patient's troponin is quite low at 4. We talked with the patient again we went over history and exam. She has a heart score of just 1. I do not think she needs a repeat troponin as she has had these symptoms for about 4 days. Her blood pressure currently is 118/64. Her heart rate is about 74 on the monitor and regular with sinus beat and no ectopy. We discussed reasons to return that would include worsening pain, adding dyspnea, fevers, lightheadedness or any other concerns. We also discussed that she should have follow-up. I did review prior stress test on the computer. She had a stress echocardiogram done March 29, 2019 where she exceeded 100% of age-predicted heart rate and had no signs of acute abnormalities. Lab Data Attestation: I reviewed the patient's lab results. Labs: Laboratory Results - last 24 hr 02/12/23 14:30 WBC 8.2 RBC 5.01 Hgb 14.6 Hct 46.2 MCV 92.2 MCH 29.1 MCHC 31.6 L RDW Std Deviation 46.4 H RDW Coeff of Christina 13.7 Plt Count 192 MPV 13.4 H Immature Gran % (Auto) 0.400 Neut % (Auto) 44.0 L Lymph % (Auto) 42.7 H [place] % (Auto) 9.4 Eos % (Auto) 2.8 Baso % (Auto) 0.7 Absolute Neuts (auto) 3.6 Absolute Lymphs (auto) 3.50 Nucleated RBC % 0 Sodium 139 Potassium 3.7 Chloride 106 Carbon Dioxide 27.0 Anion Gap 6 BUN 14 Creatinine 0.80 Estim Creat Clear Calc 55.73 Est GFR (MDRD) Af Amer 95 Est GFR (MDRD) Non-Af 78 BUN/Creatinine Ratio 17.5 Glucose 95 Calcium 9.7 Troponin I High Sens 4 Radiography Diagnostic Testing: Clinical Impression(s) from Imaging Studies Chest X-Ray 02/12/23 14:55 IMPRESSION: Normal x-ray examination of the chest. Electronically Signed: Monico Felipe MD at 15:17 EDT , EKG Initial EKG: Comments: My independent interpretation the patient's EKG shows a normal sinus rhythm. No ectopy. No acute ST elevation or depression. Nonspecific flattening in lead III. ND interval, QRS duration and QTc normal Discharge Plan Triage Chief Complaint: Chest Pain ED Provider: Duong Romo Dx/Rx/DC Orders Clinical Impression: Chest pain Instructions: ED Chest Pain, Uncertain Cause Prescriptions: No Action loratadine 10 MG tablet 10 mg PO DAILY Advair 250-50 Diskus 1 puff inhalation DAILY PRN (Reason: Allergies) Albuterol IH (ProAir) inhalation Q4H PRN (Reason: Allergies) Primary Care Provider: Jose Elias Redd Referrals: Ge Laura MD [Med Staff - [facility]] - 3-5 Days Disposition Disposition: Home, Self Care
[2023-02-12 15:15] LABS: Anion Gap 6 (5-15); BUN 14 mg/dL (7-18); BUN/Creat Ratio 17.5 RATIO (10-20); Calcium,Total 9.7 mg/dL (8.5-10.1); Chloride 106 mmol/L (98-107); EST Glomerular Filtration Rate 78 mL/min (>60); Est Glom Filt Rate - Afr Amer 95 mL/min (>60); Estimated Creatinine Clearance 55.73 ml/min; Glucose 95 mg/dL (74-106); Potassium 3.7 mmol/L (3.5-5.1); Sodium Level 139 mmol/L (136-145); Troponin-I HS 4 pg/mL (3.0-54.0)
[2023-02-12 16:30] VITALS: BP 117/83; PULSE 85; RESP 21; O2SAT 94
[2023-02-12 16:43] VITALS: BP 134/78; PULSE 78; RESP 16; O2SAT 98
== END 2023-02-12 16:44 | disposition home or self-care (01) ==
PROVIDERS: Emergency Provider Emergency Medicine; PCP Family Medicine; Visit Provider Emergency Medicine
DX: R07.9 Chest pain, unspecified (principal); J45.909 Unspecified asthma, uncomplicated; Z79.899 Other long term (current) drug therapy; Z79.51 Long term (current) use of inhaled steroids; Z90.710 Acquired absence of both cervix and uterus; Z90.49 Acquired absence of other specified parts of digestive tract
CPT/HCPCS: 71045; 80048; 84484; 85025; 93005; 99284; A4216

== ENCOUNTER → 2024-02-25 | Outpatient (CLI) | payer SELFPAY ==
--- NOTE | 2024-02-25 11:45 | RAD_ITS ---
NAME: Rain López PROCEDURE: IR Hip Arthrogram Injection Procedure WO Anesthesia ACCESSION NUMBER: [id number] CLINICAL HISTORY AND INDICATION: PAIN IN RIGHT HIP COMPARISON: March 16, 2019. Procedure: The procedure with its potential risks was explained to the patient, all the questions and concerns were answered and written informed consent was obtained. A timeout was observed to confirm identity, procedure and site. Localization of the patient''s right hip was performed under fluoroscopy. The patient''s right hipwas prepped and draped in the usual sterile fashion. Local anesthesia was achieved with subcutaneous injection of 1% lidocaine. Under fluoroscopic guidance, a 22-gauge needle was advanced into the right hip joint, and intra-articular location was confirmed with administration of 2 ml Isovue 300. Then 10 mL of diluted gadolinium based contrast ( 1:50:50 dilution of gadolinium contrast in Omnipaque 350 and normal saline, respectively ) was injected to the joint space. Intra-articular needle position was confirmed with intermittent fluoroscopy. The patient tolerated the procedure well, with no intermediate complications. The patient was escorted to the MR suite for further imaging. RAD/Arthrogram Hip w/ MRI IMPRESSION: Successful shoulder arthrogram with injection of 10 mL of Magnevist. Electronically Signed: Monico Felipe MD at 13:20 EDT ,
--- NOTE | 2024-02-25 12:03 | MRI_ITS ---
STUDY: MRI ARTHROGRAM OF THE RIGHT HIP REASON FOR EXAM: Female, 58 years old. PAIN IN RT HIP TECHNIQUE: Standardized fat and water weighted pulse sequences were obtained in all 3 orthogonal planes. Intra-articular contrast was injected by the on-site physician. COMPARISON: Right hip arthrogram dated February 25, 2024. Pelvic x-ray dated March 16, 2019 FINDINGS: The right hip joint is distended with intra-articular contrast. 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 No acute fractures are present. Normal hip joint without articular joint space narrowing. Normal acetabulum. Normal labrum. Normal femoral neck and intratrochanteric region. Normal gluteus minimus, medius and iliopsoas tendons and distal insertions. There is no trochanteric, iliopsoas or iliopectineal bursitis. Normal superior and inferior pubic rami. Normal pubic symphysis. Normal ischial tuberosity. Normal origin of the hamstring tendons. Normal visualized iliac wing, sacroiliac joint, and sacral ala. Normal visualized soft tissue structures of the pelvis. MRI/Lower Ext/Jt Only/W Contrast IMPRESSION: 1. 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 No acute fractures are present. Electronically Signed: Ryan Booker MD at 16:04 EDT ,
[2024-02-25] MEDS: Lidocaine 2% (5ml sdv) 5 ML VIAL.MPF INFILT (12:25)
[2024-02-25] MEDS: Iopamidol 10 ML in Syringe 1 EACH 600 ML INTRAARTIC (12:27)
[2024-02-25] MEDS: Gadoterate Meglumine Diluted 10 ML, Iopamidol 5 ML, Lidocaine 1% (20 ml mdv) 5 ML, Epin... INTRAARTIC (12:27)
== END | disposition home or self-care (01) ==
PROVIDERS: PCP Family Medicine; Referring Provider Student in an Organized Health Care Education/Training Program; Visit Provider Student in an Organized Health Care Education/Training Program
DX: S73.191A Other sprain of right hip, initial encounter (principal); M25.551 Pain in right hip
CPT/HCPCS: 27093; 73722; 77002; Q9967

== ENCOUNTER → 2024-08-17 | Outpatient (CLI) | payer SELFPAY ==
--- NOTE | 2024-08-17 14:11 | EKG12_ITS ---
Test Reason : PREOP Blood Pressure : */* mmHG Vent. Rate : 75 BPM Atrial Rate : 75 BPM P-R Int : 116 ms QRS Dur : 76 ms QT Int : 384 ms P-R-T Axes : 68 44 44 degrees QTcB Int : 428 ms Normal sinus rhythm Normal ECG Confirmed by ANTHONY NIÑO, DA ([id number]), avid editor LEWIS TREVINO ([id number]) on 08/18/2024 6:36:18 AM Referred By: Catalino Moreno Confirmed By: DA CRUZ MD
== END | disposition home or self-care (01) ==
PROVIDERS: PCP Family Medicine; Referring Provider Student in an Organized Health Care Education/Training Program; Visit Provider Student in an Organized Health Care Education/Training Program
DX: Z01.818 Encounter for other preprocedural examination (principal)
CPT/HCPCS: 93005